=== PATIENT | male | born 1990 | race Caucasian/White ===

== ENCOUNTER → 2016-12-24 | Outpatient (CLI) | payer MEDICAID | LOC: BRMIMAGING 13:56 | PROVIDERS: ATTEND Registered Nurse | DX: N50.3 Cyst of epididymis (principal) | CPT/HCPCS: 76870-PO ==

== ENCOUNTER → 2017-06-03 | Outpatient (CLI) | payer MEDICAID | LOC: BRMIMAGING 11:27 | PROVIDERS: ATTEND Registered Nurse | DX: R22.1 Localized swelling, mass and lump, neck (principal) ==